=== PATIENT | female | born 1965 | race Caucasian/White ===

== ENCOUNTER 2018-05-11 00:34 | Emergency (ER) | payer BC ==
[~2018-05-11] VITALS: Ht 165.1 cm; Wt 85.3 kg
--- OUTSIDE RECORDS SUMMARY | 2018-05-11 00:35 | XMS REPORT | Clinical Summary ---
Author Author [facility] Organization [facility] Address Unknown Phone Unavailable Care Team Providers Care Lumber Mover Name Role Phone Jeimy Gatica MD PCP Allergies No Known Allergies Medications End Date Status Medication Sig Dispensed Refills Start Date Active FINACEA 15 % foam TRENT TO FACE 10 BID 6 Active QNASL 80 mcg/actuation U 2 SPRAYS 5 HFA aerosol inhaler IEN ONCE D 6 Active estradiol (VIVELLE-DOT) APPLY 1 PATCH 5 0.05 mg/24 hr TO SKIN TWICE 6 A WEEK DIRECTED Active ALCORTIN A 2-1-1 % gel APR UNDER 0 BREAST BID 6 Active MUCUS RELIEF ER 600 mg TK 1 T PO TID 0 tablet extended release PRN 6 12hr Active irbesartan (AVAPRO) 300 TK 1 T PO 1 MG tablet ONCE A DAY 6 Active pantoprazole (PROTONIX) TK 1 T PO D 1 40 MG EC tablet 6 Active ARMOUR THYROID 30 mg TK 1 T PO QAM 2 tablet (.075 gr 6 daily) Active valACYclovir (VALTREX) TK 1 T PO D 1 500 MG tablet 6 Active ibuprofen (ADVIL,MOTRIN) 0 600 MG tablet 6 Active acetaminophen-codeine 0 (TYLENOL #3) 300-30 mg 6 per tablet 09/30/2017 dicyclomine (BENTYL) 10 Take 1 120 capsule 11 MG capsuleIndications: capsule (10 7 Epigastric pain mg total) by mouth 4 (four) times a day before meals and nightly. 12/29/2017 methocarbamol (ROBAXIN) Take 1 tablet 120 tablet 0 500 MG tablet (500 mg 8 total) by mouth 4 (four) times a day for 30 days. Active Problems Problem Noted Date Plantar fasciitis of right foot 04/01/2017 Synovitis of right foot 04/01/2017 Encounters Care Team Description Date Type Specialty 02/14/2018 Hospital Radiology Encounter Tram Painter MD Nontoxic multinodular goiter (Primary Dx) 12/04/2017 Transcribe Access Orders Marie Rob MD Chronic right shoulder pain (Primary Dx); Complete tear of right rotator cuff 11/29/2017 Office Visit Orthopedic Surgery Alex Garcia MD 08/23/2017 Lab Lab Sharath Navas MD Plantar fascial fibromatosis (Primary Dx); Synovitis 07/05/2017 Transcribe Physical Therapy Orders Gabe Garzon MA Plantar fasciitis of right foot (Primary Dx); Synovitis of right foot 05/21/2017 Orders Only Orthopedic Surgery after 05/10/2017 Family History Medical History Relation Name Comments Cancer Father Darian Ashraf Hypertension Father Darian Ashraf No Known Problems Mother Relation Name Status Comments Father Darian Pascale Mother Social History Date Tobacco Use Types Packs/Day Years Used Never Smoker Smokeless Tobacco: Never Used Alcohol Use Drinks/Week oz/Week Comments Yes 5 Glasses of wine Sex Assigned at Date Recorded Not on file Industry Job Start Date Occupation Not on file Not on file Not on file Travel End Travel History Travel Start No recent travel history available. Last Filed Vital Signs Time Taken Vital Sign Reading - Blood Pressure - - Pulse - - Temperature - - Respiratory Rate - - Oxygen Saturation - - Inhaled Oxygen - Concentration 11/29/2017 9:37 AM CDT Weight 102 kg (225 lb) 11/29/2017 9:37 AM CDT Height 165.1 cm (5' 5") 11/29/2017 9:37 AM CDT Body Mass Index 37.44 Plan of Treatment Health Maintenance Due Date Last Done Comments CERVICAL CANCER SCREENING 08/27/1984 BREAST CANCER SCREENING 08/27/2013 SHINGLES VACCINES (1 of 08/27/2013 2) COLON CANCER SCREENING 08/23/2020 08/23/2017, 08/06/2014 INFLUENZA VACCINE Completed 04/10/2018, 01/05/2017 Procedures Comments Procedure Name Priority Date/Time Associated Diagnosis XR SHOULDER 2+ VW RIGHT Routine 11/29/2017 Chronic right shoulder 9:49 AM CDT pain SURGICAL PATHOLOGY Routine 08/23/2017 REQUEST 10:46 AM CDT after 05/10/2017 Results * XR Shoulder 2+ Vw Right (11/29/2017 9:49 AM CDT) Narrative Performed At [facility] Radiographs of the right shoulder, 3 views, AP, Y and axillary lateral views: No fracture, no dislocation, normal alignment, preserved glenohumeral joint space, no pathologic lesion, no greater tuberosity cysts, preserved acromiohumeral interval, type II acromion, AC joint degenerative changes Performing Organization Address [facility] Phone Number [facility] [address] [place] [address] * Surgical pathology request (08/23/2017 10:46 AM CDT) [facility] DEPARTMENT OF PATHOLOGY AND GENOMIC MEDICINE Surgical pathology report See link below for PDF Lab [facility] DEPARTMENT OF Report PATHOLOGY AND GENOMIC MEDICINE Result status This is Final Report to [facility] DEPARTMENT OF [id number] PATHOLOGY AND GENOMIC MEDICINE Performing Organization Address [facility] Phone Number [facility] DEPARTMENT OF [address] [place] [id number] PATHOLOGY AND GENOMIC MEDICINE after 05/10/2017 Insurance Payer Benefit Subscriber ID Type Phone Address Plan / Group BCBS BCBS xxxxxxxxx PPO CHOICE PPO/GABRIELE YEPEZ PPO Advance Directives Patient has advance care planning documents on file. For more information, hortencia mays contact: Clark Boykin [address] [place] [address]
[2018-05-11] MEDS ORDERED: ONDANSETRON HCL INJ 2 MG/ML VIAL IV STA (00:55)
[2018-05-11] MEDS ORDERED: MORPHINE SULFATE INJ 4 MG/ML INJ IV PRN (01:00)
[2018-05-11] MEDS ORDERED: MORPHINE SULFATE 2 MG/ML SYR IV STA (01:57)
--- NOTE | 2018-05-11 02:09 | Diagnostic Imaging Report ---
EXAM: CT ABDOMEN AND PELVIS WITH IV CONTRAST INDICATION: Epigastric pain COMPARISON: None TECHNIQUE: The abdomen and pelvis were scanned using a multidetector helical scanner. Coronal and sagittal reformations were obtained. Dose modulation, iterative reconstruction, and/or weight based adjustment of the mA/kV was utilized to reduce the radiation dose to as low as reasonably achievable. Routine protocol performed. IV Contrast: 100 cc Isovue-370 Oral Contrast: None CTDIvol has been reviewed. It is below the limits set by the Radiation Protocol Committee (RPC). FINDINGS: LOWER THORAX: No consolidations LIVER: No masses BILIARY: Cholecystectomy with mild intra and extrahepatic biliary dilation, likely secondary to reservoir effect. SPLEEN: No masses PANCREAS: No masses ADRENALS: No nodules KIDNEYS: No enhancing masses. No hydronephrosis. GI TRACT: No wall thickening or obstruction. Nonspecific mild gastric wall thickening of the anterior wall of the stomach. No evidence of appendicitis. VESSELS: Normal PERITONEUM/RETROPERITONEUM: No free air or fluid LYMPH NODES: No lymphadenopathy REPRODUCTIVE ORGANS: Uterus and ovaries are not visualized. BLADDER: Normal SOFT TISSUES: Normal BONES: No suspicious bone lesions. IMPRESSION: Nonspecific mild gastric wall thickening of the anterior wall of the stomach. This could be due to gastritis or underdistention. Cholecystectomy with mild intra and extrahepatic biliary dilation, likely secondary to reservoir effect. Signed by: Dr. Alison Lomeli M.D. on 05/11/2018 2:05 AM
[2018-05-11] MEDS ORDERED: PANTOPRAZOLE INJ 40 MG in SODIUM CHLORIDE 0.9% 50ML 50 ML IV SCH (02:30)
[2018-05-11] MEDS ORDERED: DICYCLOMINE HCL 20 MG TAB PO ONE (02:30)
[2018-05-11] MEDS ORDERED: DONNATAL/LIDOCAINE/MAALOX 30 ML SUSP PO ONE (03:45)
[2018-05-11 03:48] VITALS: BP 124/80
== END 2018-05-11 03:49 | disposition home or self-care (01) ==
LOC: FSED 00:34
DX: R10.13 Epigastric pain (principal); R11.0 Nausea; K29.00 Acute gastritis without bleeding
CPT/HCPCS: 74177; 80053; 80076; 81003; 82553; 84484; 85025; 93005; 99283